=== PATIENT | female | born 1995 | race Caucasian/White ===

== ENCOUNTER 2017-06-26 10:52 | Emergency (ER) | payer OTHER ==
[~2017-06-26] VITALS: Ht 180.3 cm; Wt 81.2 kg
[2017-06-26 11:01] VITALS: TEMP 36.4; Ht 180.3 cm; Wt 81.2 kg
[2017-06-26] MEDS ORDERED: BCPILLS PO (11:24)
[2017-06-26] MEDS ORDERED: TURM500T PO (11:24)
[2017-06-26] MEDS ORDERED: NAPR250T3 PO (11:24)
[2017-06-26] MEDS ORDERED: GLUC1TAB94 PO (11:24)
[2017-06-26] MEDS ORDERED: CHOL1CHW10 PO (11:24)
[2017-06-26] MEDS ORDERED: MULT-506 PO (11:24)
[2017-06-26] MEDS ORDERED: MAGN400T6 PO (11:24)
[2017-06-26] MEDS ORDERED: LIDO/EPINEPHRINE/SOD BICARB 20 ML VIAL INFIL ONE ×2 (11:42→11:43)
[2017-06-26] MEDS ORDERED: LIDOCAINE/EPINEPHRINE 1% 20 ML VIAL ONE (11:42)
[2017-06-26] MEDS ORDERED: XYLOCAINE 1%/SOD BICARB 20 ML VIAL INFIL ONE (11:45)
--- NOTE | 2017-06-26 13:06 | EMERGENCY ROOM VISIT NOTE ---
ED Visit Note First contact with patient: 11:23 CHIEF COMPLAINT: Right thumb laceration 30 minutes ago HISTORY OF PRESENT ILLNESS: Patient is a [id number] 22-year-old white female who presents to the emergency department for evaluation of a laceration to her right thumb. She was washing a glass, when it broke, the glass causing a laceration, as scribe below. She notes minimal pain, rating it a 2/10. Denies any numbness or weakness. Bleeding has been controlled with pressure. She denies any chance that there could be a glass foreign body in the wound. REVIEW OF SYSTEMS: Review of systems as per HPI. All other systems reviewed were negative. At least 6 systems reviewed. PMH: Electronic medical records are reviewed and summarized as above/below. See Problem List. Her tetanus is up-to-date. SOCIAL HISTORY: Patient is a student at [employer] she is originally from [place]. She is here visiting her boyfriend for the weekend. Does not smoke. PHYSICAL EXAM: Vital Signs: Reviewed Nurse's notes. There is a 2 cm long U- shaped flap laceration on the dorsal aspect of the right thumb, near the first MCP joints. The flap reflects completely. There is no foreign material in the wound and it looks clean. There is scant active bleeding. No deep structures such as tendons or nerves are seen in the base of the wound. Extension, flexion and abduction and adduction of the thumb is full and strong. Sensation to pain and light touch is intact. The ulnar side of the flap is slightly pale. EMERGENCY DEPARTMENT COURSE: The patient was seen and assessed as above. She has a flap-like laceration to the dorsal aspect of her right thumb. The wound is superficial and does not extend into the tendinous base and I do not suspect extensor tendon injury. The flap has a moderate wall. There is a portion that is slightly pale, but the other half of the flap does have good capillary refill , and there is steady oozing from the base of the wound. Treatment options were discussed with the patient. She was offered primary closure with sutures, and possibility of the entire flap not being completely viable was discussed with her. The other option was complete excision of the flap, then use of hemostatic dressing such as Gelfoam or Surgicel over the skin avulsion. Given the size of the flap/defect, in its location on the extensor surface of her thumb on her dominant side, I recommended tacking the flap down with sutures. Even if the entire flap is not viable, it can act as an anatomic Band-Aid until the wound granulates over. She expressed understanding of both of the options and proceeded with the first. Using sterile technique, saline and Betadine cleansing, and 1% lidocaine anesthesia, the laceration was irrigated with saline and then repaired with 5, 5 -0 nylon sutures. Bacitracin and a light dressing were applied. Wound care measures were discussed. She was encouraged to have the sutures removed back at school in a couple of weeks. She was educated on the signs or symptoms of infection or necrosis for which she should seek immediate medical attention. She expressed understanding of this and was agreeable Medication reconciliation: I attest that I have personally reviewed the patient' s current medication list. Blood pressure screening : Patient was found to have normal blood pressure on screening and does not require follow-up. Current/Historical Medications Scheduled Control Pills ( Control Pills), 1 TAB PO DAILY Cholecalciferol (Vitamin D3), 1,000 UNITS PO DAILY Nxlelznybvc-Hpflekvzdtz-Viuijv (Avvo Free Joint Health Ad), 1 TAB PO DAILY Magnesium Oxide (Mag-Ox), 400 MG PO DAILY Multivitamin (Multivitamin), 1 TAB PO DAILY Naproxen Tab (Naprosyn), 250 MG PO BID Turmeric (Curcuma Longa) (Turmeric), 500 MG PO DAILY Allergies Coded Allergies: No Known Allergies (Unverified , 06/26/17) Vital Signs Date Time Temp Pulse Resp B/P (MAP) Pulse Ox O2 Delivery O2 Flow Rate FiO2 06/26/17 13:13 60 16 107/57 100 06/26/17 12:01 64 16 118/86 06/26/17 11:01 36.4 68 18 133/78 99 Room Air Medications Administered Medications (Trade) Dose Ordered Sig/Bertin Route Start Time Stop Time Status Last Admin Dose Admin Lidocaine HCl (Buffered Lidocaine 1% Inj) 20 ml ONE ONCE INFIL 06/26/17 11:45 06/26/17 11:46 DC 06/26/17 11:45 20 ML Departure Information Impression Primary Impression: Laceration of right thumb Referrals No Doctor, Assigned (PCP) Patient Instructions My [facility] Additional Instructions Keep wound clean and dry. Do not allow any crusting or dried blood to accumulate on sutures. If this occurs, clean with mild soap and water, or use a 1:1 solution of hydrogen peroxide/water on a Q-tip to clean the wound. Use an antibiotic ointment for 3-4 days, then let wound dry. Suture removal in 12- 14 days. Return sooner for any signs of infection (increasing redness, swelling , drainage). Ice and elevate for swelling and pain. Ibuprofen 600 mg and Tylenol 1000 mg every 6 hrs for pain.
[2017-06-26 13:13] VITALS: BP 107/57; PULSE 60; O2SAT 100
== END 2017-06-26 13:11 | disposition home or self-care (01) ==
LOC: C.EDB 10:55 → C.EDD 13:11
DX: S61.011A Laceration without foreign body of right thumb without damage to nail, initial encounter (principal); W25.XXXA Contact with sharp glass, initial encounter; Y92.89 Other specified places as the place of occurrence of the external cause; Y93.G1 Activity, food preparation and clean up